=== PATIENT | male | born 1970 | race Two or more races ===

== ENCOUNTER 2017-12-11 07:49 | Emergency (ER) | payer OTHER ==
[~2017-12-11] VITALS: Ht 172.7 cm; Wt 94.3 kg
[2017-12-11] MEDS ORDERED: DICLOFENAC POTA50 MG PO (12:42)
[2017-12-11] MEDS ORDERED: MEDROLPACK PO (12:42)
== END 2017-12-11 12:54 | disposition home or self-care (01) ==
LOC: ER 07:49
DX: M54.5 Low back pain (principal)

== ENCOUNTER 2023-11-28 08:10 | Outpatient (CLI) | payer OTHER ==
[~2023-11-28 08:10] MED LIST: DICLOFENAC POTA50 MG PO; MEDROLPACK PO
== END 2023-11-28 08:21 | disposition home or self-care (01) ==
LOC: SONOGRAMA 08:10
PROVIDERS: ATTEND Specialist
DX: G56.01 Carpal tunnel syndrome, right upper limb (principal); N20.0 Calculus of kidney

== ENCOUNTER 2024-12-14 10:46 | Outpatient (CLI) | payer OTHER | END 2024-12-14 10:57 | disposition home or self-care (01) | LOC: RAD 10:46 | PROVIDERS: ATTEND Specialist | DX: M54.50 Low back pain, unspecified (principal); M51.26 Other intervertebral disc displacement, lumbar region ==

== ENCOUNTER 2025-02-04 07:25 | Outpatient (CLI) | payer OTHER | END 2025-02-04 07:35 | disposition home or self-care (01) | LOC: RAD 07:25 | PROVIDERS: ATTEND Specialist | DX: J45.998 Other asthma (principal); N20.0 Calculus of kidney ==

== ENCOUNTER 2025-03-09 08:23 | Outpatient (CLI) | payer OTHER | END 2025-03-09 08:25 | disposition home or self-care (01) | LOC: SONOGRAMA 08:23 | PROVIDERS: ATTEND Specialist | DX: M77.11 Lateral epicondylitis, right elbow (principal); M70.21 Olecranon bursitis, right elbow ==

== ENCOUNTER 2025-03-12 07:54 | Outpatient (CLI) | payer OTHER | END 2025-03-12 07:56 | disposition home or self-care (01) | LOC: MRI 07:54 | PROVIDERS: ATTEND Specialist | DX: C76.40 Malignant neoplasm of unspecified upper limb (principal); D49.89 Neoplasm of unspecified behavior of other specified sites | CPT/HCPCS: 73221 ==